=== PATIENT | male | born 1945 | race Caucasian/White ===

== ENCOUNTER 2020-10-28 04:36 | Emergency (ER) | payer MEDICARE, OTHER, SELFPAY ==
[2020-10-28 04:41] VITALS: PULSE 82; RESP 20; TEMP 36.8; O2SAT 100; BMI 24.3
--- NOTE | 2020-10-28 04:50 | ED_ITS ---
HPI - Epistaxis General: Chief complaint: Epistaxis Stated complaint: nosebleed Time Seen by Provider: 10/28/20 04:39 Source: patient Mode of arrival: ambulatory Limitations: no limitations History of Present Illness: HPI Narrative: 75-year-old maleNosebleed from the left nare over the last 3 to 4 hours. He states it has been constant he has not been able to get it stopped. He is on Coumadin. He denies any worsening improving factors. He denies any injuries. He denies any pain. MD complaint: epistaxis Location: left nostril Onset (ago): hour(s) Associated symptoms: Deny fever(s), headache(s) or vomiting Review of Systems Const: Denies: fever(s), chills, body aches or change in appetite Eyes: Denies: blurry vision or eye discomfort ENMT: Reports: epistaxis Card: Denies: chest pain Resp: Denies: dyspnea GI: Denies: abdominal pain, nausea, vomiting or diarrhea : Denies: dysuria Musc: Denies: neck pain or back pain Skin/Breast: Denies: rash Neuro: Denies: headache(s) Psych: Denies: depression Daquan/Lymph: Denies: easy bruising All/Imm: Denies: urticaria PFSH ED PFSH: Medical History (Updated 10/28/20 @ 05:16 by Francesca Lackey MD) Anticoagulant long-term use Atrial fibrillation Cardiomyopathy CVA (cerebral vascular accident) Hyperlipidemia JE (obstructive sleep apnea) TIA (transient ischemic attack) Surgical History Status cardiac pacemaker Family History Father CAD (coronary artery disease) Myocardial infarction Social History Smoking and tobacco status: never smoked Alcohol intake: never Lives independently: Yes Household members: children Marital status: / service: Yes branch: [employer] Physical Exam Const: COMMON NORMALS: no acute distress, patient oriented x3 and healthy appearing HENMT: COMMON NORMALS: normocephalic and atraumatic HEAD & SCALP: normocephalic and atraumatic OTHER: Epistaxis from left nare Eye: COMMON NORMALS: Equal, round and reactive pupils present and EOMs intact bilaterally PUPIL: Yes Equal, round and reactive pupils present Neck/C-Spine: COMMON NORMALS: full ROM and supple Chest: COMMONS NORMALS: normal inspection of the chest and normal palpation of entire chest wall Resp: COMMON NORMALS: normal respiratory effort, No retractions, No use of accessory muscles and clear to auscultation bilaterally AUSCULTATION: clear to auscultation bilaterally Cardio: COMMON NORMALS: regular rate, regular rhythm and No murmurs present (Cardio) RATE: regular rate RHYTHM: regular rhythm GI: COMMON NORMALS: Normal to inspection, nondistended, normoactive bowel jayde nds present, Soft to palpation, non-tender and no masses PALPATION: Yes Soft to palpation Extremity: COMMON NORMALS: normal to inspection and full ROM Neuro: COMMON NORMALS: patient oriented x3, moves all extremities and no focal motor deficits Psych: COMMON NORMALS: mental status grossly normal, Normal thought process present and cooperative THOUGHT PROCESS: Normal thought process present Skin: COMMON NORMALS: no rashes or lesions noted and no wounds GENERAL SKIN EXAM: no rashes or lesions noted Course Vital Signs: Vital signs: Vital Signs Temperature 98.2 F 10/28/20 04:41 Pulse Rate 82 10/28/20 04:41 Respiratory Rate 20 H 10/28/20 04:41 Pulse Oximetry 100 10/28/20 04:41 MDM - Epistaxis MDM Narrative: Medical decision making narrative: Patient presents here with a nosebleed that has resolved after a posterior packing was placed. But informed him to hold his Coumadin for 1 day as his INR was [address] him on Keflex while he has the Rhino Rocket in place. Patient is to follow-up with Dr. Mejia and if he is unable to get in within the next 2 to 3 days he is to return to the ER to have the packing removed. He understands and agrees to plan. Lab Data: Labs: Lab Results 10/28/20 Range/Units 04:55 PT 38.90 H (12.1-14.9) SECO NDS INR 3.79 H (0.8-1.2) Discharge Plan Discharge Patient Disposition: Home Clinical Impression: Epistaxis Condition: Stable Prescriptions: New Keflex 500 mg capsule 500 mg PO TID 3 Days Qty: 9 RF: 0 No Action amiodarone [Pacerone] 200 mg tablet 200 mg PO DAILY RF: 0 aspirin 325 mg tablet 325 mg PO DAILY RF: 0 warfarin 5 mg tablet 5 mg PO DAILY RF: 0 levothyroxine 125 mcg capsule 125 mcg PO DAILY RF: 0 atorvastatin 20 mg tablet 20 mg PO DAILY RF: 0 Discharge Orders: Discharge ED (Routine); Ordered 10/28/20 Ordered By: Francesca Lackey Referrals: Sen Ramirez MD [Physician] - 1-3 days Sen Richmond MD [Primary Care Provider] - Discharge Diet: Advance as tolerated Discharge Activity: Resume usual activity Patient Instructions: Epistaxis (ED) Coding Level of Care Code ED Beef Grinder for Prernag Fwd Exam Comprehensive
[2020-10-28] MEDS: oxymetazoline 0.05% Nasal Spray 15 mL 2 SPRAY NOSTRIL-B (04:53)
[2020-10-28 05:13] LABS: INR 3.79 (0.8-1.2)
[2020-10-28] MEDS: ondansetron 4 MG Tablet PO (05:55)
[2020-10-28 05:56] VITALS: BP 96/74; PULSE 78; RESP 18
[2020-10-28 06:18] VITALS: BP 115/82; PULSE 78; RESP 18; O2SAT 98
--- NOTE | 2020-10-28 10:15 | DCPLANNER ---
business line manager had message to schedule a follow up appointment for patient with Dr. Ramirez, ENT. business line manager faxed patients information to the office of Dr. Ramirez. Clinic will call patient and wrapper caser with appointment information.
--- NOTE | 2020-11-18 08:46 | DCPLANNER ---
Patient had a follow up appointment scheduled for 11.07.[address] Ramirez - patient did attend appointment.
== END 2020-10-28 06:33 | disposition home or self-care (01) ==
PROVIDERS: Emergency Provider Emergency Medicine; PCP Family Medicine
DX: R04.0 Epistaxis (principal); Z79.82 Long term (current) use of aspirin; Z79.01 Long term (current) use of anticoagulants; I48.91 Unspecified atrial fibrillation; Z86.73 Personal history of transient ischemic attack (TIA), and cerebral infarction without residual deficits; E78.5 Hyperlipidemia, unspecified; Z95.0 Presence of cardiac pacemaker
CPT/HCPCS: 12345; 30905; 85610; 99283; Q0162

== ENCOUNTER 2022-01-15 09:16 | Emergency (ER) | payer MEDICARE, OTHER, SELFPAY ==
[2022-01-15 09:23] VITALS: BP 154/98; PULSE 72; RESP 16; TEMP 36.8; O2SAT 97; BMI 22.5
--- NOTE | 2022-01-15 09:31 | XR_ITS ---
WS: [id number] XR hand RT min 3V* [id number] REASON FOR EXAM: thumb, table saw lac FINDINGS: No fracture or focal bone lesion. No acute dislocation. Subluxations in the DIP joints. No radiopaque foreign body. Extensive arthropathy involving the hand with narrowing of the joint spaces, subchondral sclerosis, a nd prominent marginal osteophytes in the DIP and PIP joints of the fingers. Similar but more severe a rthropathic changes seen in the metacarpal carpal joint and the metacarpal phalangeal joint of the th umb. There is a more severe arthropathic abnormality in the metacarpal phalangeal joint of the third finge r with a large overhanging spur from the distal third metacarpal. Similar but less severe arthropathi c change in the second metacarpal phalangeal joint. XR/XR hand RT min 3V* [id number] IMPRESSION: No acute abnormality. Osteoarthritis like arthropathy. 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
--- NOTE | 2022-01-15 09:33 | ED_ITS ---
HPI - Wound/Laceration General: Chief Complaint: Wound/Laceration Stated Complaint: Right hand lac Time Seen by Provider: 01/15/22 09:28 History of Present Illness: Patient cut right thumb with a table saw blade by accident this morning tetanus is not up-to-date. Associated symptoms: Denies chills, fever(s), nausea or vomiting Review of Systems Const: Denies: fever(s), chills or body aches Eyes: Denies: eye discomfort ENMT: Denies: throat pain Card: Denies: chest pain Resp: Denies: dyspnea GI: Denies: abdominal pain, nausea or vomiting Musc: Reports: joint pain and other (Laceration right thumb through the nailbed) Skin/Breast: Denies: rash Neuro: Denies: headache(s) Psych: Denies: depression or suicidal ideation PFSH ED PFSH: Medical History Anticoagulant long-term use Atrial fibrillation Cardiomyopathy CVA (cerebral vascular accident) Hyperlipidemia JE (obstructive sleep apnea) TIA (transient ischemic attack) Surgical History Status cardiac pacemaker Family History Father CAD (coronary artery disease) Myocardial infarction Social History Smoking and tobacco status: never smoked Alcohol intake: never Lives independently: Yes Household members: children Marital status: / service: Yes branch: [employer] Physical Exam Const: COMMON NORMALS: no acute distress, patient oriented x3 and alert HENMT: COMMON NORMALS: normocephalic and external ears normal HEAD & SCALP: normocephalic EXTERNAL EAR: Yes external ears normal Eye: COMMON NORMALS: EOMs intact bilaterally Neck/C-Spine: COMMON NORMALS: no JVD Resp: COMMON NORMALS: normal respiratory effort and No use of accessory muscles Cardio: COMMON NORMALS: no JVD GI: INSPECTION: Yes normal to inspection Extremity: RIGHT UPPER EXTREMITY: Yes hand & digits OTHER: Patient is an avulsion laceration that starts on the lateral aspect of the right thumb near his DIP joint and goes across the nailbed exposing tuft of the phalanx. Avulsion laceration is very irregular. DIP joint is intact. Half the nail is gone. Wound was wrapped in Xeroform dressing after thorough cleaning and pressure dressing applied. And this was after digital block was performed with 1% Xylocaine Neuro: COMMON NORMALS: patient oriented x3 SENSORIUM/ORIENTATION: Yes alert Psych: COMMON NORMALS: mental status grossly normal Skin: COMMON NORMALS: no rashes or lesions noted GENERAL SKIN EXAM: no rashes or lesions noted Course Vital Signs: Vital signs: Vital Signs Temperature 98.2 F 01/15/22 09:50 Pulse Rate 72 01/15/22 09:50 Respiratory Rate 16 01/15/22 09:50 Blood Pressure 154/98 01/15/22 09:50 Pulse Oximetry 97 01/15/22 09:50 MDM - Wound/Laceration Medical Decision Making Hand surgeon at [facility] was contacted, Dr. Marshall and patient will have appointment 1:00 on Tuesday at [facility].. I examined the wound in conjunction with Dr. Wu. Wound was cleaned thoroughly soaked 1% Xylocaine digital block was performed. Wound appears to be irregular avulsion of the thumb distal aspect x- ray appears reveal partial amputation of the tuft. Bleeding controlled with dressing pressure bandage. Tetanus was administered. Patient given pain medication. Lab Data Radiology Impressions Hand X-Ray 01/15/22 09:31 IMPRESSION: No acute abnormality. Osteoarthritis like arthropathy. 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 Discharge Plan Discharge Condition: Stable Prescriptions: No Action aspirin 325 mg tablet 325 mg PO DAILY 0RF warfarin 5 mg tablet 5 mg PO DAILY 0RF Rx Instructions: DIRECTED levothyroxine 125 mcg capsule 125 mcg PO DAILY 0RF atorvastatin 20 mg tablet 20 mg PO DAILY 0RF amiodarone [Pacerone] 200 mg tablet 200 mg PO DAILY Qty: 90 3RF Referrals: Sen Richmnod MD [Primary Care Provider] - Coding Level of Care Code ED Supervisor Sewer Maintenance for Chg Fwd Exam Comprehensive
[2022-01-15] MEDS: tetanus-dipt-pertussis 0.5 mL SDV IM (09:48)
[2022-01-15 09:50] VITALS: BP 154/98; PULSE 72; RESP 16; TEMP 36.8; O2SAT 97
[2022-01-15] MEDS: HYDROcodone-acetaminophen 5-325 mg Tablet 1 TAB PO (09:50)
[2022-01-15] MEDS: lidocaine 1% INJ 20 mL INTRADERMA (09:51)
[2022-01-15] MEDS: neomycin-poly-bacitracin oint 0.9 gm Pkt 1 APPLIC TOPICAL (10:59)
[2022-01-15 11:27] VITALS: PULSE 70; RESP 18; O2SAT 99
== END 2022-01-15 11:31 | disposition home or self-care (01) ==
PROVIDERS: Emergency Provider Nurse Practitioner Family; PCP Family Medicine
DX: S68.021A Partial traumatic metacarpophalangeal amputation of right thumb, initial encounter (principal); Z79.01 Long term (current) use of anticoagulants; Z79.82 Long term (current) use of aspirin; Z86.73 Personal history of transient ischemic attack (TIA), and cerebral infarction without residual deficits; E78.5 Hyperlipidemia, unspecified; Z95.0 Presence of cardiac pacemaker; W27.0XXA Contact with workbench tool, initial encounter; Z23 Encounter for immunization
CPT/HCPCS: 73130; 90471; 90715; 99283

== ENCOUNTER 2022-03-19 18:27 | Emergency (ER) | payer MEDICARE, OTHER, SELFPAY ==
--- NOTE | 2022-03-19 18:29 | XRR_ITS ---
PROCEDURE INFORMATION: Exam: XR Chest Exam date and time: 03/19/2022 6:57 PM Age: 76 years old Clinical indication: Prior surgery; Surgery date: 6+ months; Surgery type: Pacer; Patient HX: C/O neck / lue numbness; Additional info: Cp TECHNIQUE: Imaging protocol: XR of the chest. Views: 1 view. COMPARISON: CR Chest 1 [place] [id number] 12/18/2018 7:47 PM FINDINGS: Tubes, catheters and devices: There is a dual-lead cardiac pacer via left subclavian approach. Findings are stable. Lungs: No focal consolidation. No pulmonary edema. Stable calcified granuloma in the the right lower lobe. Pleural spaces: No pleural effusion. No pneumothorax. Heart/Mediastinum: Stable moderate enlargement of the cardiac silhouette. Mediastinal contours are unremarkable. Vasculature: Stable vascular calcifications in the aorta. Bones/joints: Unremarkable for age. XR/XR chest 1V portable [id number] IMPRESSION: 1. No acute cardiopulmonary process. 2. Incidental/nonacute findings are listed in the report.
--- NOTE | 2022-03-19 18:30 | ECG_ITS ---
[facility] Test Date: 2022-03-19 Pat Name: Fuad Aranda Department: Room: Gender: Male Third Hand: : 1945 Requested By: Francesca Lackey Order Number: [id number] MD: Tia Jules M.D. Measurements Intervals [place] Rate: 60 P: [place]: QRS: -77 QRSD: 202 T: 88 QT: 505 QTc: 507 Interpretive Statements ELECTRONIC VENTRICULAR PACEMAKER ABNORMAL RHYTHM ECG Compared to ECG 12/18/2018 19:22:30 Atrial fibrillation no longer present Left-axis deviation no longer present T-wave abnormality no longer present Possible ischemia no longer present Electronically Signed On 03-20-2022 10:12:32 CDT by Tia Jules M.D. [id number] f
--- NOTE | 2022-03-19 18:40 | ED_ITS ---
HPI - General Adult General: Chief complaint: General Medical Stated complaint: left arm numbness going to neck. possible heart at Time Seen by Provider: 03/19/22 18:39 History of Present Illness: Mr. Aranda is a 76-year-old gentleman with complex past medical history including hypertension, hyperlipidemia, atrial fibrillation, cardiomyopathy, history of strokes presenting to the emergency department due to chest discomfort and arm pain. Symptoms of sharp shoulder and arm pain that is worse with movement and been ongoing for approximately 1 week though intermittent. Approximately 3 days ago he noticed mild paresthesias associated with this and also mild left mid neck pain. This is mostly sharp in quality and moderate in intensity. Sometimes becomes severe with movement. Additionally he has noticed some pressure as a band across his chest. Mild associated shortness of breath at times. No cough or infectious symptoms. He endorses a history of fungal stomach infection and sometimes gets nauseous however this is not worse or different than baseline. No other specific changes in health, exacerbating, or alleviating factors identified. Onset (ago): day(s) Location: left and upper extremity Severity: moderate Quality: sharp Associated symptoms: Reports chest pain Review of Systems General: Reports: 10 or more systems reviewed and unremarkable except in HPI and below Card: Reports: chest pain PFSH ED PFSH: Medical History Anticoagulant long-term use Atrial fibrillation Cardiomyopathy CVA (cerebral vascular accident) Hyperlipidemia JE (obstructive sleep apnea) TIA (transient ischemic attack) Surgical History Status cardiac pacemaker Family History Father CAD (coronary artery disease) Myocardial infarction Social History Smoking and tobacco status: never smoked Alcohol intake: never Lives independently: Yes Household members: children Marital status: / service: Yes branch: [employer] Physical Exam Const: COMMON NORMALS: patient oriented x3 and alert GENERAL APPEARANCE: cooperative and well developed HENMT: COMMON NORMALS: normocephalic and atraumatic HEAD & SCALP: normocephalic and atraumatic Eye: COMMON NORMALS: conjunctivae normal CONJUNCTIVA: Yes conjunctivae normal SCLERA: sclerae normal Neck/C-Spine: COMMON NORMALS: supple GENERAL: Yes trachea midline Resp: COMMON NORMALS: normal respiratory effort EFFORT & INSPECTION: Yes ab le to speak in complete sentences Cardio: COMMON NORMALS: regular rate and regular rhythm RATE: regular rate RHYTHM: regular rhythm GI: COMMON NORMALS: Soft to palpation PALPATION: Yes Soft to palpation and No Tenderness to palpation present (GI) PERCUSSION: normal to percussion Extremity: NARRATIVE EXTREMITY EXAM: Tenderness palpation of superior lateral shoulder joint on the left with pain with range of motion and limitation of range of motion secondary to pain. Distal CMS intact. GENERAL: No edema Neuro: COMMON NORMALS: patient oriented x3, CN's II-XII intact bilaterally and moves all extremities SENSORIUM/ORIENTATION: Yes alert and No Orientation impaired Psych: COMMON NORMALS: mental status grossly normal and Normal thought process present THOUGHT PROCESS: Normal thought process present Course ED course: - Patient was seen and evaluated by me at bedside - Patient placed on cardiac monitors, IV access obtained - Initial evaluation notable for exam as above. - Labs and xrays personally interpreted by me. EKG notable for paced rhythm with no STEMI. -Aspirin and symptom treatment ordered - Labs notable for no leukocytosis, normal hemoglobin. INR 2.95. No significant electrolyte disturbance to explain symptoms. Delta troponin negative. - Imaging notable for no lobar consolidation or pneumothorax on chest x-ray. Shoulder x-ray without acute fracture identified. Head CT and neck CT negative for acute pathology to explain symptoms - Upon serial reexamination after treatment the patient was somewhat improved - Based on patient history, evaluation, and testing as interpreted the most likely cause of the patient's condition is chest pain of uncertain etiology - The results of ED evaluation were discussed with the patient including possible disposition options. I discussed restratification by heart score including estimated risk of major adverse cardiac events. I offered admission which the patient declined in favor of outpatient testing. I discussed prescriptions and/or symptomatic cares (if applicable) including appropriate and responsible use, followup plan, and return precautions. The patient verbalized understanding and felt safe for discharge. - Patient discharged in satisfactory condition. Note: Click bubbles or prepopulated grossman in note writing are used for assistance with data collection and billing and are inherently more limited than narrative and other text portions of this note. Please use narrative for additional clinical history and defer to narrative/free test for any case of contradictory information. If information appears in only free text or click bubble it should be considered present or absent as reported. Please contact note speech writer for clarifications of clinical information or contradictory information. MDM is a brief summary, contradictory or erroneous seeming information should be clarified and full note should be reviewed. Vital Signs: Vital signs: Vital Signs Temperature 98.0 F 03/19/22 18:41 Pulse Rate 61 03/19/22 19:31 Respiratory Rate 15 03/19/22 19:31 Blood Pressure 146/92 03/19/22 19:31 Pulse Oximetry 97 03/19/22 19:31 MDM - General Adult Medical Decision Making 76-year-old gentleman presenting with chest pain. ED evaluation negative for acute pathology identified. Offered patient admission versus outpatient management and patient prefers outpatient management with further cardiac testing. Discharged in satisfactory condition. Medical Records I reviewed the patient's medical records. Lab Data I reviewed the patient's lab results. : 03/19/22 18:59 03/19/22 18:59 Radiology Impressions Chest X-Ray 03/19/22 18:29 IMPRESSION: 1. No acute cardiopulmonary process. 2. Incidental/nonacute findings are listed in the report. Cervical Spine CT 03/19/22 18:55 IMPRESSION: 1. No acute fracture of the cervical spine. 2. Multilevel degenerative changes of varying severity in the visualized spine. Mild spinal canal stenosis at C3-C4 through C6-C7. Multilevel foraminal stenosis of varying severity in the cervical spine. Findings are stable. 3. There is a round metallic focus in the right cervical soft tissues anterior to the upper right sternocleidomastoid. Etiology is uncertain, this is stable compared with 03/14/2015 however. 4. Incidental/nonacute findings are listed in the report. Head CT 03/19/22 18:55 IMPRESSION: 1. No acute abnormality of the brain. 2. Stable mild atrophy of the brain parenchyma. 3. 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 4. Stable area of encephalomalacia in the left temporal lobe consistent with an old infarct. 5. Interval resolution of a left frontal parafalcine intraparenchymal hemorrhage. Residual focal calcification at the prior hemorrhage site. 6. Stable small amount of fluid in the right and left mastoid air cells. 7. Incidental/nonacute findings are listed in the report. Shoulder X-Ray 03/19/22 18:55 IMPRESSION: 1. No acute fracture of the left shoulder. Followup imaging recommended in 7-14 days if clinical concern for fracture persists. 2. Incidental/nonacute findings are listed in the report. Laboratory Results WBC 6.2 10^3/uL (4.0-10.0) 03/19/22 18:59 RBC 4.61 10^6/uL (4.1-5.3) 03/19/22 18:59 Hgb 13.3 g/dL (11.7-16.6) 03/19/22 18:59 Hct 40.4 % (42.0-52.0) L 03/19/22 18:59 MCV 87.6 fl (80-94) 03/19/22 18:59 MCH 28.9 pg (28.0-34.0) 03/19/22 18:59 MCHC 32.9 g/dL (30.0-36.0) 03/19/22 18:59 RDW 14.3 % (12.1-15.1) 03/19/22 18:59 Plt Count 202 10^3/cmm (130-400) 03/19/22 18:59 MPV 11.9 fL (7.4-10.4) H 03/19/22 18:59 Neut % (Auto) 58.8 % 03/19/22 18:59 Lymph % (Auto) 25.6 % 03/19/22 18:59 [place] % (Auto) 14.3 % 03/19/22 18:59 Eos % (Auto) 0.6 % 03/19/22 18:59 Baso % (Auto) 0.5 % 03/19/22 18:59 Neut # (Auto) 3.65 10^3/uL (1.8-7.7) 03/19/22 18:59 Lymph # (Auto) 1.6 10^3/uL (0.8-4.8) 03/19/22 18:59 [place] # (Auto) 0.9 10^3/uL (0.2-0.9) 03/19/22 18:59 Eos # (Auto) 0.0 10^3/uL (0.0-0.8) 03/19/22 18:59 Baso # (Auto) 0.0 10^3/uL (0.0-0.1) 03/19/22 18:59 Nucleated RBC % (auto) 0 % 03/19/22 18:59 Nucleated RBCs # 0.0 /100WBC 03/19/22 18:59 PT 31.00 SECONDS (12.1-14.9) H 03/19/22 20:40 INR 2.95 (0.8-1.2) H 03/19/22 20:40 APTT 51.7 SECONDS (23.9-36.7) H 03/19/22 20:40 Sodium 134 mmol/L (136-145) L 03/19/22 18:59 Potassium 4.2 mmol/L (3.5-5.1) 03/19/22 18:59 Chloride 99 mmol/L (98-107) 03/19/22 18:59 Carbon Dioxide 22 mmol/L (22-29) 03/19/22 18:59 Anion Gap 17.2 (5-19) 03/19/22 18:59 BUN 18 mg/dL (8-23) 03/19/22 18:59 Creatinine 0.8 mg/dL (0.7-1.2) 03/19/22 18:59 GFR Calculation Not Reportable 03/19/22 18:59 Glucose 114 mg/dL (65-115) 03/19/22 18:59 Calculated Osmolality 281 mOsm/kg (285-295) L 03/19/22 18:59 Calcium 9.4 mg/dL (8.5-10.5) 03/19/22 18:59 Total Bilirubin 0.8 mg/dL (0.15-1.2) 03/19/22 18:59 AST 24 U/L (0-40) 03/19/22 18:59 ALT 21 U/L (0-41) 03/19/22 18:59 Alkaline Phosphatase 110 IU/L (40-130) 03/19/22 18:59 Troponin T Baseline 11 ng/L (0-15) 03/19/22 18:59 Troponin T 120 Minute 11.44 ng/L (0-15) 03/19/22 20:40 Delta Troponin T Not Reportable 03/19/22 20:40 Total Protein 7.8 g/dL (6.6-8.7) 03/19/22 18:59 Albumin 4.5 g/dL (3.5-5.2) 03/19/22 18:59 Globulin 3.3 g/dL (1.3-4.6) 03/19/22 18:59 Discharge Plan Discharge Patient Disposition: Home Clinical Impression: Acute shoulder pain, Chest pain Condition: Stable Prescriptions: New oxycodone 5 mg tablet 5 mg PO Q6H PRN (Reason: pain) Qty: 4 0RF methocarbamol 750 mg tablet 750 mg PO TID PRN (Reason: muscle spasm) Qty: 10 0RF Protonix 40 mg tablet,delayed release (DR/EC) 40 mg PO DAILY Qty: 10 0RF No Action warfarin 5 mg tablet 5 mg PO DAILY 0RF Rx Instructions: DIRECTED amiodarone [Pacerone] 200 mg tablet 200 mg PO DAILY Qty: 90 3RF levothyroxine 100 mcg tablet 100 mcg PO DAILY 0RF Discharge Orders: Discharge ED (Routine); Ordered 03/19/22 Ordered By: Aly Hoyt Referrals: Sen Richmond MD [Primary Care Provider] - Discharge Diet: Usual diet Discharge Activity: Increase activity as tolerated Patient Instructions: Chest Pain (ED), Shoulder Pain (ED), Opioid Safety Activity Restrictions/Additional Instructions: Thank you for visiting the emergency department. You were seen evaluated for arm, shoulder, and chest pain. The exact cause of your symptoms is unclear though based on physical exam the most likely causes related to musculoskeletal/tendon inflammation of the shoulder. This will be treated with steroids. Additionally will prescribe muscle relaxers and oxycodone. Do not c ombine the oxycodone and muscle relaxer (methocarbamol). If you do use the oxycodone also use a stool softener end please be very cautious as opiates can cause difficulty with walking and balance, sedation, and other side effects. Please follow-up with your tool room supervisor and primary care provider. Return to the emergency department for worsening symptoms or anything else that you are concerned about and feel needs emergency department evaluation. Coding Level of Care Code ED Knowledge Management Consultant for Ruthy Warren Exam Comprehensive
[2022-03-19 18:41] VITALS: BP 153/95; PULSE 65; RESP 16; TEMP 36.7; O2SAT 97
--- NOTE | 2022-03-19 18:55 | XRR_ITS ---
PROCEDURE INFORMATION: Exam: XR Left Shoulder Exam date and time: 03/19/2022 7:03 PM Age: 76 years old Clinical indication: Pain; Shoulder; Left; Additional info: Pain with rom and palpation laterally TECHNIQUE: Imaging protocol: XR Left shoulder. Views: 2 or more views. COMPARISON: [facility] [place] 02/26/2019 3:53 PM FINDINGS: Tubes, catheters and devices: There is a dual-lead cardiac pacer via left subclavian approach. Bones/joints: Stable mild hypertrophic changes at the left acromioclavicular joint. Stable small osteophytes at the left glenoid. No acute fracture. No dislocation. Bones are diffusely osteopenic. Lungs: Visualized lungs are clear. Vasculature: Vascular calcifications in the aorta. Soft tissues: No soft tissue swelling. No radiopaque foreign body. XR/XR shoulder LT min 2V* [id number] IMPRESSION: 1. No acute fracture of the left shoulder. Followup imaging recommended in 7-14 days if clinical concern for fracture persists. 2. Incidental/nonacute findings are listed in the report.
--- NOTE | 2022-03-19 18:55 | CTR_ITS ---
PROCEDURE INFORMATION: Exam: CT Head Without Contrast Exam date and time: 03/19/2022 7:15 PM Age: 76 years old Clinical indication: Patient HX: C/O dizziness today - HX of L parietal stroke; Additional info: Arm paresthesias, HX stroke TECHNIQUE: Imaging protocol: Computed tomography of the head without contrast. Sagittal and coronal reformatted images were created and reviewed. Radiation optimization: All CT scans at this facility use at least one of these dose optimization techniques: automated exposure control; mA and/or kV adjustment per patient size (includes targeted exams where dose is matched to clinical indication); or iterative reconstruction. COMPARISON: CT Head wo IV contrast* [id number] 12/18/2018 7:56 PM RADIATION DOSE METRICS: Total DLP (mGy-cm): 1930.53 FINDINGS: Brain: No acute intracranial hemorrhage. No acute infarct. No intra-axial or extra-axial masses. Lei-white matter differentiation is preserved. No cerebral edema. No extra-axial fluid collections. No midline shift. Stable mild atrophy of the brain parenchyma. Stable mildly decreased attenuation in the deep white matter, consistent with mild chronic microangiopathic change. Stable area of encephalomalacia in the left temporal lobe consistent with an old infarct. Interval resolution of a left frontal parafalcine intraparenchymal hemorrhage. Residual focal calcification at the prior hemorrhage site. Cerebral ventricles: No hydrocephalus. Paranasal sinuses: Mucous retention cysts in the visualized maxillary sinuses. Other paranasal sinuses are clear. Mastoid air cells: Stable small amount of fluid in the right and left mastoid air cells. Orbital cavities: Globes and lenses, extraocular muscles, and optic nerves are intact bilaterally. No acute intraorbital abnormality. Vasculature: Atherosclerotic changes in the visualized arteries. Nasal cavity: Mild right nasal septal deviation. Bones/joints: No acute fracture. Soft tissues: No acute abnormality of the extracranial soft tissues. CT/CT head wo con* [id number] IMPRESSION: 1. No acute abnormality of the brain. 2. Stable mild atrophy of the brain parenchyma. 3. 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 4. Stable area of encephalomalacia in the left temporal lobe consistent with an old infarct. 5. Interval resolution of a left frontal parafalcine intraparenchymal hemorrhage. Residual focal calcification at the prior hemorrhage site. 6. Stable small amount of fluid in the right and left mastoid air cells. 7. Incidental/nonacute findings are listed in the report.
--- NOTE | 2022-03-19 18:55 | CTR_ITS ---
PROCEDURE INFORMATION: Exam: CT Cervical Spine Without Contrast Exam date and time: 03/19/2022 7:19 PM Age: 76 years old Clinical indication: Patient HX: C/O neck/lue numbness x 5 days; Additional info: Arm paresthesias, ttp mid cervical, HX falls TECHNIQUE: Imaging protocol: Computed tomography images of the cervical spine without contrast. Sagittal, oblique axial, and coronal reformatted images were created and reviewed. Radiation optimization: All CT scans at this facility use at least one of these dose optimization techniques: automated exposure control; mA and/or kV adjustment per patient size (includes targeted exams where dose is matched to clinical indication); or iterative reconstruction. COMPARISON: CT head wo con* [id number] 03/19/2022 7:15 PM RADIATION DOSE METRICS: Total DLP (mGy-cm): 600.63 FINDINGS: Bones/joints: Vertebral body height is maintained. No subluxation. Bones are diffusely osteopenic. No acute fracture. Discs/Spinal canal/Neural foramina: Multilevel degenerative changes of varying severity in the visualized spine. Mild spinal canal stenosis at C3-C4 through C6-C7. Multilevel foraminal stenosis of varying severity in the cervical spine. Findings are stable. Epidural space: No evidence for an epidural hematoma. Lungs: Visualized lungs are clear. Vasculature: Atherosclerotic changes in the visualized arteries. Soft tissues: No soft tissue swelling. There is a round metallic focus in the right cervical soft tissues anterior to the upper right sternocleidomastoid (series 3, image 28). Etiology is uncertain, this is stable compared with 03/14/[address]/CT cervical spin wo con* [id number] IMPRESSION: 1. No acute fracture of the cervical spine. 2. Multilevel degenerative changes of varying severity in the visualized spine. Mild spinal canal stenosis at C3-C4 through C6-C7. Multilevel foraminal stenosis of varying severity in the cervical spine. Findings are stable. 3. There is a round metallic focus in the right cervical soft tissues anterior to the upper right sternocleidomastoid. Etiology is uncertain, this is stable compared with 03/14/2015 however. 4. Incidental/nonacute findings are listed in the report.
--- NOTE | 2022-03-19 19:01 | PC.NURSE ---
REPORT GIVEN TO [facility].
[2022-03-19 19:04] LABS: Basophils % 0.5 %; Eosinophils % 0.6 %; Hematocrit 40.4 % (42.0-52.0); Hemoglobin 13.3 g/dL (11.7-16.6); Lymphocytes # 1.6 10^3/uL (0.8-4.8); Lymphocytes % 25.6 %; Mean Corpuscular HGB Conc 32.9 g/dL (30.0-36.0); Mean Corpuscular Hemoglobin 28.9 pg (28.0-34.0); Mean Corpuscular Volume 87.6 fl (80-94); Mean Platelet Volume 11.9 fL (7.4-10.4); Monocytes # 0.9 10^3/uL (0.2-0.9); Monocytes % 14.3 %; Neutrophils # 3.65 10^3/uL (1.8-7.7); Neutrophils % 58.8 %; Nucleated Red Blood Cells % 0 %; Platelet Count 202 10^3/cmm (130-400); Red Blood Count 4.61 10^6/uL (4.1-5.3); Red Cell Distribution Width 14.3 % (12.1-15.1); White Blood Count 6.2 10^3/uL (4.0-10.0)
[2022-03-19 19:21] LABS: Alanine Aminotransferase 21 U/L (0-41); Albumin Level 4.5 g/dL (3.5-5.2); Alkaline Phosphatase 110 IU/L (40-130); Anion Gap 17.2 (5-19); Aspartate Amino Transferase 24 U/L (0-40); Blood Urea Nitrogen 18 mg/dL (8-23); Calcium 9.4 mg/dL (8.5-10.5); Carbon Dioxide 22 mmol/L (22-29); Chloride 99 mmol/L (98-107); Globulin 3.3 g/dL (1.3-4.6); Glucose 114 mg/dL (65-115); Osmolality Calculated 281 mOsm/kg (285-295); Potassium 4.2 mmol/L (3.5-5.1); Sodium 134 mmol/L (136-145); Total Bilirubin 0.8 mg/dL (0.15-1.2); Total Protein 7.8 g/dL (6.6-8.7)
[2022-03-19 19:23] LABS: Troponin(5th) Baseline 11 ng/L (0-15)
[2022-03-19 19:31] VITALS: BP 146/92; PULSE 61; RESP 15; O2SAT 97
[2022-03-19] MEDS: methocarbamol 750 mg Tablet PO (19:43)
[2022-03-19] MEDS: acetaminophen 500 mg Tablet 1000 MG PO (19:43)
[2022-03-19] MEDS: aspirin 81 mg Chew Tablet 324 MG PO (19:43)
[2022-03-19 21:07] LABS: Troponin 5 2HR 11.44 ng/L (0-15)
[2022-03-19 21:23] LABS: INR 2.95 (0.8-1.2)
[2022-03-19 21:24] LABS: Partial Thromboplastin Time 51.7 SECONDS (23.9-36.7)
== END 2022-03-19 21:49 | disposition home or self-care (01) ==
PROVIDERS: Emergency Medicine; Emergency Provider Emergency Medicine; PCP Family Medicine
DX: R07.9 Chest pain, unspecified (principal); M25.512 Pain in left shoulder; I10 Essential (primary) hypertension; I48.91 Unspecified atrial fibrillation; I42.9 Cardiomyopathy, unspecified; Z86.73 Personal history of transient ischemic attack (TIA), and cerebral infarction without residual deficits; Z79.01 Long term (current) use of anticoagulants
CPT/HCPCS: 70450; 71045; 72125; 73030; 80053; 84484; 85025; 85610; 85730; 93005; 99285

== ENCOUNTER 2022-03-30 15:28 | Outpatient (CLI) | payer MEDICARE, OTHER, SELFPAY | END 2022-03-30 15:29 | disposition home or self-care (01) | LOC: LAB 15:31 | PROVIDERS: PCP Family Medicine; Visit Provider Family Medicine | DX: R19.7 Diarrhea, unspecified (principal) | CPT/HCPCS: 87493; 87506 ==

== ENCOUNTER → 2022-04-08 17:16 | Outpatient (BNVA) | payer MEDICARE, OTHER, SELFPAY | PROVIDERS: PCP Family Medicine; Visit Provider Internal Medicine | DX: Z45.010 Encounter for checking and testing of cardiac pacemaker pulse generator [battery] (principal) ==

== ENCOUNTER → 2022-05-04 16:16 | Outpatient (BNVA) | payer MEDICARE, OTHER, SELFPAY | PROVIDERS: PCP Family Medicine; Visit Provider Internal Medicine | DX: I48.91 Unspecified atrial fibrillation (principal); R06.02 Shortness of breath | CPT/HCPCS: 36415; 80048; 85025 ==

== ENCOUNTER → 2022-09-03 08:04 | Outpatient (BNVA) | payer MEDICARE, OTHER, SELFPAY | PROVIDERS: PCP Family Medicine; Visit Provider Internal Medicine | DX: Z45.010 Encounter for checking and testing of cardiac pacemaker pulse generator [battery] (principal) | CPT/HCPCS: 93279 ==

== ENCOUNTER 2022-09-09 09:03 | Outpatient (CLI) | payer MEDICARE, OTHER, SELFPAY ==
--- NOTE | 2022-09-09 10:00 | USCV_ITS ---
Fuad Aranda Age: 77 Gender: M : 1945 Exam Date: 09/09/2022 09:41 Ordering Phys: David Ballesteros M.D ([email or web address]) Technologist: Agustin Oakley Exam Location: [facility] – [place] Indication: SOB BP: 122 / 70 HR: 70 Rhythm: Sinus Technical Quality: MEASUREMENTS (Male / Female) Normal Values 2D ECHO LV Diastolic Diameter PLAX 6.1 cm 4.2 - 5.9 / 3.9 - 5.3 cm LV Systolic Diameter PLAX 3.8 cm IVS Diastolic Thickness 0.8 cm 0.6 - 1.0 / 0.6 - 0.9 cm IVS Systolic Thickness 1.5 cm LVPW Diastolic Thickness 1.1 cm 0.6 - 1.0 / 0.6 - 0.9 cm LVPW Systolic Thickness 1.5 cm LVOT Diameter 2.0 cm LV Ejection Fraction 2D Teich 67.7 % LV Ejection Fraction MOD 2C 58.3 % LV Ejection Fraction 2C AL 59.6 % LA Diameter 4.3 cm LA Width 4.2 cm LA Height 5.9 cm RA Width 4.5 cm RA Height 5.8 cm Aorta at Sinotubular Diameter 2.6 cm IVC Diameter 1.3 cm M-MODE Aortic Annulus Diameter 3.6 cm LA Ao Ratio MM 1.2 MV E Point Septal Separation 0.3 cm DOPPLER AV Peak Velocity 99.0 cm/s LVOT Peak Velocity 73.0 cm/s AV Area Cont Eq vti 2.2 cm squared AV Area Cont Eq pk 2.3 cm squared MV Peak Velocity 61.0 cm/s MV Area PHT 5.0 cm squared Mitral E to A Ratio 1.5 MV E' Velocity 25.5 cm/s Mitral E to MV E' Ratio 4.4 Mitral E to LV E' Lateral Ratio 4.0 Mitral E to LV E' Septal Ratio 4.9 TR Peak Velocity 251.1 cm/s TR Peak Gradient 25.2 mmHg TR Mean Velocity 202.6 cm/s TR Mean Gradient 17.0 mmHg TR Velocity Time Integral 56.5 cm Right Atrial Pressure 3.0 mmHg Pulmonary Artery Systolic Pressu 28.2 mmHg PV Peak Velocity 76.3 cm/s RV Acceleration Time 0.1 s RV Ejection Time 0.2 s RV AcT/ET 0.4 FINDINGS Left Ventricle Normal left ventricular size and systolic function, EF 60 %. Mild left ventricular hypertrophy. No regional wall motion abnormalities. Right Ventricle Pacemaker wire is noted Right Atrium Moderately increased right atrial size. Pacemaker wire is noted in the right atrialcavity Left Atrium Moderately increased left atrial size. Mitral Valve Mild mitral valve regurgitation. Aortic Valve Trace aortic valve regurgitation. Tricuspid Valve Mild tricuspid valve regurgitation. Pulmonic Valve Mild pulmonary valve regurgitation. Pericardium Normal pericardium without effusion. Aorta Normal ascending aorta dimension. IVC Normal inferior vena cava. CONCLUSIONS Normal left ventricular size and systolic function, EF 60 %. Mild left ventricular hypertrophy. No regional wall motion abnormalities. Moderate biatrial enlargement Pacemaker wire is noted in the right atrium and right ventricle. Mild mitral valve regurgitation. Mild tricuspid valve regurgitation. Trace aortic valve regurgitation. Mild pulmonary valve regurgitation. There is no pericardial effusion. Compared to the study from 10/28/2018, there may not be significant change Dr Drake Hadley MD [facility] (Electronically Signed) Final Date: 09 September 2022 18:31 S
== END 2022-09-09 09:04 | disposition home or self-care (01) ==
PROVIDERS: PCP Family Medicine; Visit Provider Internal Medicine
DX: R06.02 Shortness of breath (principal); I08.3 Combined rheumatic disorders of mitral, aortic and tricuspid valves; Z95.0 Presence of cardiac pacemaker
CPT/HCPCS: 93306

== ENCOUNTER → 2022-11-11 15:20 | Outpatient (BNVA) | payer MEDICARE, SELFPAY | PROVIDERS: PCP Family Medicine; Visit Provider Internal Medicine | DX: I48.91 Unspecified atrial fibrillation (principal); I42.9 Cardiomyopathy, unspecified; G47.33 Obstructive sleep apnea (adult) (pediatric); E78.5 Hyperlipidemia, unspecified; Z79.01 Long term (current) use of anticoagulants; Z86.73 Personal history of transient ischemic attack (TIA), and cerebral infarction without residual deficits; Z95.0 Presence of cardiac pacemaker | CPT/HCPCS: 99214 ==

== ENCOUNTER → 2022-12-28 09:05 | Outpatient (BNVA) | payer MEDICARE, SELFPAY | PROVIDERS: PCP Family Medicine; Visit Provider Internal Medicine | DX: Z45.010 Encounter for checking and testing of cardiac pacemaker pulse generator [battery] (principal) | CPT/HCPCS: 93296 ==

== ENCOUNTER → 2023-12-23 15:17 | Outpatient (BNVA) | payer MEDICARE, SELFPAY | PROVIDERS: PCP Family Medicine; Visit Provider Internal Medicine | DX: Z45.010 Encounter for checking and testing of cardiac pacemaker pulse generator [battery] (principal) | CPT/HCPCS: 93296 ==

== ENCOUNTER → 2024-06-27 11:43 | Outpatient (BNVA) | payer MEDICARE, SELFPAY | PROVIDERS: PCP Family Medicine; Visit Provider Internal Medicine | DX: Z45.010 Encounter for checking and testing of cardiac pacemaker pulse generator [battery] (principal) | CPT/HCPCS: 93296 ==

== ENCOUNTER → 2024-08-28 15:48 | Outpatient (BNVA) | payer MEDICARE, SELFPAY | PROVIDERS: PCP Family Medicine; Visit Provider Internal Medicine Cardiovascular Disease | DX: I48.91 Unspecified atrial fibrillation (principal); E78.49 Other hyperlipidemia; I42.8 Other cardiomyopathies; Z95.0 Presence of cardiac pacemaker | CPT/HCPCS: 99214 ==

== ENCOUNTER → 2025-03-20 13:51 | Outpatient (BNVA) | payer MEDICARE, SELFPAY | PROVIDERS: PCP Family Medicine; Visit Provider Internal Medicine | DX: Z45.018 Encounter for adjustment and management of other part of cardiac pacemaker (principal) | CPT/HCPCS: 93296 ==

== ENCOUNTER → 2025-06-25 12:42 | Outpatient (BNVA) | payer MEDICARE, SELFPAY | PROVIDERS: PCP Family Medicine; Visit Provider Internal Medicine | DX: Z45.018 Encounter for adjustment and management of other part of cardiac pacemaker (principal) | CPT/HCPCS: 93296 ==